=== PATIENT | female | born 1965 | race African-American/Black ===

== ENCOUNTER 2017-07-21 09:45 | Emergency (ER) | payer SELFPAY ==
[~2017-07-21] VITALS: Ht 149.9 cm; Wt 82.0 kg
[2017-07-21] MEDS ORDERED: ALBU6.7H IH (09:55)
[2017-07-21] MEDS ORDERED: MORPHINE SULFATE 4 MG/ML CPJ (NOT FOR IM USE) IV STA (10:55)
[2017-07-21] MEDS ORDERED: ONDANSETRON HCL 4MG/2ML VIAL IV STA (10:55)
[2017-07-21] MEDS ORDERED: SODIUM CHLORIDE 0.9% 1,000 ML IV ONE (10:55)
[2017-07-21] MEDS ORDERED: FAMOTIDINE 20MG/2ML VIAL IV STA (10:55)
[2017-07-21 11:07] LABS: BASOPHILS % 0.9 % (0.0-2.0); EOSINOPHILS % 0.2 % (0.0-5.0); HEMATOCRIT. 33.1 % (36.0-48.0); HEMOGLOBIN. 11.2 g/dL (12.0-16.0); LYMPHOCYTES % 18.9 % (20.0-50.0); MEAN CORPUSCULAR HEMOGLOBIN 30.9 pg (28.0-32.0); MEAN PLATELET VOLUME 8.5 fl (7.4-10.4); MONOCYTES % 4.2 % (2.0-8.0); NEUTROPHILS % 75.8 % (40.0-76.0); PLATELET 290 x1000/uL (130-400); RED BLOOD CELL COUNT 3.63 mill/uL (4.2-5.4); RED CELL DISTRIBUTION WIDTH 11.6 % (11.6-14.6)
[2017-07-21 11:15] LABS: PARTIAL THROMBOPLASTIN TIME 24.3 sec (23.4-31.0); PROTHROMBIN TIME 10.7 sec (9.4-11.6)
[2017-07-21 11:24] LABS: CARBON DIOXIDE 32 mEq/L (21-32); CHLORIDE 99 mEq/L (98-107); TROPONIN I < 0.02 ng/mL (0.00-0.04)
[2017-07-21 12:21] LABS: CLARITY URINE CLEAR (CLEAR); COLOR URINE YELLOW (YELLOW); KETONES URINE 1+ (NEGATIVE); LEUKOCYTE ESTERASE URINE NEGATIVE (NEGATIVE); NITRITE URINE NEGATIVE (NEGATIVE); OCCULT BLOOD URINE NEGATIVE (NEGATIVE); PROTEIN URINE TRACE (NEGATIVE); SPECIFIC GRAVITY URINE 1.041 (1.005-1.030)
[2017-07-21] MEDS ORDERED: KETOROLAC 30MG/ML VIAL IV ONE (14:00)
[2017-07-21 14:50] VITALS: BP 140/81
== END 2017-07-21 14:52 | disposition home or self-care (01) ==
LOC: ER 10:03
DX: R10.32 Left lower quadrant pain (principal); K59.00 Constipation, unspecified; J45.909 Unspecified asthma, uncomplicated; I10 Essential (primary) hypertension; E11.9 Type 2 diabetes mellitus without complications
CPT/HCPCS: 36415; 71045; 74176; 80053; 81001; 83690; 84484; 85025; 85610; 85730; 87086; 93005; 96361; 96374; 96375; 99285; J1885; J2270; J2405; J3490; J7030

== ENCOUNTER 2018-04-19 18:19 | Emergency (ER) | payer MEDICAID, OTHER ==
[~2018-04-19] VITALS: Ht 149.9 cm; Wt 52.0 kg
[~2018-04-19 18:19] MED LIST: ALBU6.7H IH
[2018-04-19] MEDS ORDERED: ONDANSETRON HCL 4MG/2ML INJ IV STA (20:15)
[2018-04-19] MEDS ORDERED: MORPHINE SULFATE 4 MG/ML CPJ (NOT FOR IM USE) IV STA (20:15)
[2018-04-19 21:45] LABS: BASOPHILS % 0.9 % (0.0-2.0); EOSINOPHILS % 0.1 % (0.0-5.0); HEMATOCRIT. 33.4 % (36.0-48.0); HEMOGLOBIN. 11.7 g/dL (12.0-16.0); LYMPHOCYTES % 30.1 % (20.0-50.0); MEAN CORPUSCULAR HEMOGLOBIN 32.9 pg (28.0-32.0); MEAN CORPUSCULAR VOLUME 93.4 fL (81.0-99.0); MEAN PLATELET VOLUME 9.2 fl (7.4-10.4); NEUTROPHILS % 62.9 % (40.0-76.0); PLATELET 348 x1000/uL (130-400); RED BLOOD CELL COUNT 3.57 mill/uL (4.2-5.4); RED CELL DISTRIBUTION WIDTH 12.5 % (11.6-14.6)
[2018-04-19 21:48] LABS: CHLORIDE 87 mEq/L (98-107)
[2018-04-19 21:49] LABS: PROTHROMBIN TIME 10.4 sec (9.1-11.1)
[2018-04-19 21:56] LABS: CLARITY URINE CLEAR (CLEAR); COLOR URINE YELLOW (YELLOW); KETONES URINE 4+ (NEGATIVE); LEUKOCYTE ESTERASE URINE NEGATIVE (NEGATIVE); NITRITE URINE NEGATIVE (NEGATIVE); OCCULT BLOOD URINE NEGATIVE (NEGATIVE); PROTEIN URINE 1+ (NEGATIVE); SPECIFIC GRAVITY URINE 1.024 (1.005-1.030)
[2018-04-19] MEDS ORDERED: POTASSIUM CHLORIDE 20MEQ TABLET SR PO ONE (23:15)
[2018-04-20] MEDS ORDERED: SODIUM CHLORIDE 0.9% 1,000 ML IV ONE (00:34)
[2018-04-20 03:06] VITALS: BP 100/58
== END 2018-04-20 03:06 | disposition home or self-care (01) ==
LOC: ER 18:19
DX: K31.84 Gastroparesis (principal); G89.29 Other chronic pain; R10.84 Generalized abdominal pain; R11.2 Nausea with vomiting, unspecified; E11.9 Type 2 diabetes mellitus without complications; I10 Essential (primary) hypertension; Z98.890 Other specified postprocedural states; Z79.899 Other long term (current) drug therapy
CPT/HCPCS: 36415; 80053; 81003; 81025; 83690; 85025; 85610; 96361; 96374; 96375; 99285; J2270; J2405; J7030

== ENCOUNTER 2018-05-08 07:48 | Emergency (ER) | payer MEDICAID ==
[~2018-05-08] VITALS: Ht 149.9 cm; Wt 54.0 kg
[2018-05-08] MEDS ORDERED: MORPHINE SULFATE 4 MG/ML CPJ (NOT FOR IM USE) IV STA (10:12)
[2018-05-08] MEDS ORDERED: FAMOTIDINE 20MG/2ML VIAL IV STA (10:12)
[2018-05-08] MEDS ORDERED: SODIUM CHLORIDE 0.9% 1,000 ML IV ONE (10:12)
[2018-05-08] MEDS ORDERED: ONDANSETRON HCL 4MG/2ML INJ IV STA (10:12)
[2018-05-08 12:16] LABS: CLARITY URINE CLEAR (CLEAR); COLOR URINE YELLOW (YELLOW); KETONES URINE 3+ (NEGATIVE); LEUKOCYTE ESTERASE URINE NEGATIVE (NEGATIVE); NITRITE URINE NEGATIVE (NEGATIVE); OCCULT BLOOD URINE NEGATIVE (NEGATIVE); PROTEIN URINE 2+ (NEGATIVE); SPECIFIC GRAVITY URINE 1.021 (1.005-1.030)
[2018-05-08 12:34] LABS: BASOPHILS % 1.3 % (0.0-2.0); EOSINOPHILS % 0.4 % (0.0-5.0); HEMATOCRIT. 24.9 % (36.0-48.0); HEMOGLOBIN. 8.5 g/dL (12.0-16.0); LYMPHOCYTES % 28.5 % (20.0-50.0); MEAN CORPUSCULAR HEMOGLOBIN 33.5 pg (28.0-32.0); MEAN CORPUSCULAR VOLUME 97.6 fL (81.0-99.0); MONOCYTES % 5.5 % (2.0-8.0); NEUTROPHILS % 64.3 % (40.0-76.0); PLATELET 227 x1000/uL (130-400); RED BLOOD CELL COUNT 2.55 mill/uL (4.2-5.4); RED CELL DISTRIBUTION WIDTH 13.1 % (11.6-14.6)
[2018-05-08 12:38] LABS: CHLORIDE 106 mEq/L (98-107)
[2018-05-08 12:44] LABS: HCG SCREEN NEGATIVE
[2018-05-08 12:49] LABS: INR 1.1
[2018-05-08] MEDS ORDERED: KETOROLAC 30MG/ML VIAL IV ONE (13:30)
[2018-05-08 13:53] VITALS: BP 136/60
[2018-05-12] MEDS ORDERED: METOCLOPRAMIDE HCL 10MG/2ML VIAL IV NR (05:30)
== END 2018-05-08 13:54 | disposition home or self-care (01) ==
LOC: ER 12:43
DX: K31.84 Gastroparesis (principal); E11.9 Type 2 diabetes mellitus without complications; I10 Essential (primary) hypertension; Z98.890 Other specified postprocedural states; Z88.9 Allergy status to unspecified drugs, medicaments and biological substances
CPT/HCPCS: 36415; 74176; 80053; 81003; 81025; 83690; 84703; 85025; 85610; 96361; 96374; 96375; 99285; J1885; J2270; J2405; J3490; J7030

== ENCOUNTER 2018-05-12 05:00 | Inpatient (IN) | payer MEDICAID ==
[~2018-05-12] VITALS: Ht 121.9 cm; Wt 54.4 kg
[2018-05-12] MEDS ORDERED: KETOROLAC 30MG/ML VIAL IV STA (05:24)
[2018-05-12] MEDS ORDERED: ONDANSETRON HCL 4MG/2ML INJ IV STA (05:24)
[2018-05-12 06:07] LABS: BASOPHILS % 1.2 % (0.0-2.0); EOSINOPHILS % 0.2 % (0.0-5.0); HEMATOCRIT. 31.3 % (36.0-48.0); HEMOGLOBIN. 10.8 g/dL (12.0-16.0); LYMPHOCYTES % 24.6 % (20.0-50.0); MEAN CORPUSCULAR HEMOGLOBIN 33.8 pg (28.0-32.0); MEAN PLATELET VOLUME 8.7 fl (7.4-10.4); MONOCYTES % 4.2 % (2.0-8.0); NEUTROPHILS % 69.8 % (40.0-76.0); PLATELET 438 x1000/uL (130-400); RED CELL DISTRIBUTION WIDTH 13.1 % (11.6-14.6)
[2018-05-12 06:08] LABS: CHLORIDE 101 mEq/L (98-107)
[2018-05-12 06:10] LABS: PARTIAL THROMBOPLASTIN TIME 27.5 sec (23.4-31.0); PROTHROMBIN TIME 10.4 sec (9.1-11.1)
[2018-05-12 07:14] LABS: CLARITY URINE CLEAR (CLEAR); COLOR URINE YELLOW (YELLOW); KETONES URINE 4+ (NEGATIVE); LEUKOCYTE ESTERASE URINE NEGATIVE (NEGATIVE); NITRITE URINE NEGATIVE (NEGATIVE); OCCULT BLOOD URINE NEGATIVE (NEGATIVE); PROTEIN URINE 1+ (NEGATIVE); SPECIFIC GRAVITY URINE 1.023 (1.005-1.030)
[2018-05-12] MEDS ORDERED: PANTOPRAZOLE 80 MG in SODIUM CHLORIDE 0.9% 100 ML IV SCH (08:00)
[2018-05-12] MEDS ORDERED: PANTOPRAZOLE SODIUM 40 MG/VIAL IV ONE (08:00)
[2018-05-12] MEDS ORDERED: ONDANSETRON HCL 4MG/2ML INJ IV ONE (08:00)
[2018-05-12] MEDS ORDERED: DICYCLOMINE HCL 10MG/ML 2ML AMP IM ONE (08:00)
[2018-05-12] MEDS ORDERED: POTASSIUM CHLORIDE INJ 40 MEQ in DEXT 5% WATER 250 ML IV ONE (08:30)
[2018-05-12] MEDS ORDERED: PANTOPRAZOLE 80 MG in SODIUM CHLORIDE 0.9% 100 ML IV ONE (08:30)
[2018-05-12] MEDS ORDERED: IOHEXOL-300 100 ML BOTTLE ONE (10:44)
[2018-05-12 14:30] VITALS: BP 174/64
[2018-05-12] MEDS: MORPHINE SULFATE 4 MG/ML CPJ (NOT FOR IM USE) IV PRN ×2 (14:50→20:14)
[2018-05-12] MEDS ORDERED: LORAZEPAM 2MG/ML CPJ IV PRN (15:00)
[2018-05-12 16:00] VITALS: BP_SYST 174; BP_SYST 176; BP_DIAS 64; BP_DIAS 83
[2018-05-12] MEDS: PANTOPRAZOLE 40MG DR TABLET PO SCH (17:53)
[2018-05-12 20:00] VITALS: BP 195/95
[2018-05-13] VITALS (7 sets, daily range): BP systolic 121–171; BP diastolic 64–99
[2018-05-13] MEDS: INSULIN LISPRO 100 UNITS/ML SUBCUT SCH ×4 (07:50→21:00)
[2018-05-13] MEDS ORDERED: DIPHENHYDRAMINE 50MG/ML VIAL IV PRN (08:00)
[2018-05-13] MEDS ORDERED: DEXTROSE 50% WATER 50ML SYRINGE IV PRN (08:00)
[2018-05-13] MEDS ORDERED: CLONIDINE 0.1MG TABLET PO PRN (08:00)
[2018-05-13] MEDS: BLOOD SUGAR DIAGNOSTIC STRIP TEST SCH ×4 (08:03→21:19)
[2018-05-13 08:04] LABS: BASOPHILS % 0.8 % (0.0-2.0); EOSINOPHILS % 0.4 % (0.0-5.0); HEMATOCRIT. 30.5 % (36.0-48.0); HEMOGLOBIN. 10.5 g/dL (12.0-16.0); LYMPHOCYTES % 35.1 % (20.0-50.0); MEAN CORPUSCULAR HEMOGLOBIN 33.5 pg (28.0-32.0); MEAN CORPUSCULAR VOLUME 97.1 fL (81.0-99.0); MEAN PLATELET VOLUME 8.7 fl (7.4-10.4); MONOCYTES % 9.3 % (2.0-8.0); NEUTROPHILS % 54.4 % (40.0-76.0); PLATELET 427 x1000/uL (130-400); RED BLOOD CELL COUNT 3.14 mill/uL (4.2-5.4); RED CELL DISTRIBUTION WIDTH 12.9 % (11.6-14.6)
[2018-05-13 08:11] LABS: CHLORIDE 102 mEq/L (98-107)
[2018-05-13] MEDS: PANTOPRAZOLE 40MG DR TABLET PO SCH (08:30)
[2018-05-13] MEDS: METOCLOPRAMIDE HCL 10MG TABLET PO SCH ×3 (08:31→20:40)
[2018-05-13] MEDS: MORPHINE SULFATE 4 MG/ML CPJ (NOT FOR IM USE) IV PRN ×3 (08:31→20:41)
[2018-05-13] MEDS ORDERED: POTASSIUM CHLORIDE 20MEQ TABLET SR PO NR (09:45)
[2018-05-13 20:00] LABS: HEMATOCRIT 33.9 % (36.0-48.0); HEMOGLOBIN 11.5 g/dL (12.0-16.0)
[2018-05-13] MEDS: PANTOPRAZOLE SODIUM 40 MG/VIAL IV SCH (20:40)
[2018-05-14] VITALS: BP 154/83
[2018-05-14 01:00] LABS: HEMATOCRIT 31.7 % (36.0-48.0); HEMOGLOBIN 11.3 g/dL (12.0-16.0)
[2018-05-14] MEDS: MORPHINE SULFATE 4 MG/ML CPJ (NOT FOR IM USE) IV PRN ×5 (01:07→21:45)
[2018-05-14 04:00] VITALS: BP 138/74
[2018-05-14] MEDS: METOCLOPRAMIDE HCL 10MG TABLET PO SCH (06:28)
[2018-05-14] MEDS: BLOOD SUGAR DIAGNOSTIC STRIP TEST SCH ×4 (06:29→21:05)
[2018-05-14] MEDS: ONDANSETRON HCL 4MG/2ML INJ IV PRN ×2 (06:29→17:29)
[2018-05-14] MEDS: INSULIN LISPRO 100 UNITS/ML SUBCUT SCH ×4 (06:29→21:00)
[2018-05-14 07:04] LABS: BASOPHILS % 0.8 % (0.0-2.0); EOSINOPHILS % 0.4 % (0.0-5.0); HEMATOCRIT. 30.2 % (36.0-48.0); HEMOGLOBIN. 10.5 g/dL (12.0-16.0); LYMPHOCYTES % 41.6 % (20.0-50.0); MEAN CORPUSCULAR HEMOGLOBIN 33.9 pg (28.0-32.0); MEAN CORPUSCULAR VOLUME 97.1 fL (81.0-99.0); MEAN PLATELET VOLUME 8.6 fl (7.4-10.4); MONOCYTES % 7.5 % (2.0-8.0); NEUTROPHILS % 49.7 % (40.0-76.0); PLATELET 468 x1000/uL (130-400); RED BLOOD CELL COUNT 3.11 mill/uL (4.2-5.4); RED CELL DISTRIBUTION WIDTH 12.9 % (11.6-14.6)
[2018-05-14 07:18] LABS: CHLORIDE 101 mEq/L (98-107)
[2018-05-14 08:00] VITALS: BP 162/82
[2018-05-14] MEDS: PANTOPRAZOLE SODIUM 40 MG/VIAL IV SCH ×2 (09:43→21:16)
[2018-05-14] MEDS ORDERED: POTASSIUM CHLORIDE 20MEQ TABLET SR PO SCH ×2 (10:45→14:45)
[2018-05-14 12:00] VITALS: BP 153/80
[2018-05-14] MEDS: METOCLOPRAMIDE HCL 10MG/2ML VIAL IV SCH ×2 (12:26→18:13)
[2018-05-14] MEDS: ACETAMINOPHEN 325MG TABLET PO PRN (14:14)
[2018-05-14 16:00] VITALS: BP 124/79
[2018-05-14 20:00] VITALS: BP 141/73
[2018-05-15] VITALS: BP 136/76
[2018-05-15] MEDS: ACETAMINOPHEN 325MG TABLET PO PRN ×2 (00:37→05:48)
[2018-05-15] MEDS: METOCLOPRAMIDE HCL 10MG/2ML VIAL IV SCH ×3 (01:33→12:00)
[2018-05-15 04:00] VITALS: BP 138/76
[2018-05-15] MEDS: BLOOD SUGAR DIAGNOSTIC STRIP TEST SCH ×2 (05:17→11:48)
[2018-05-15] MEDS: INSULIN LISPRO 100 UNITS/ML SUBCUT SCH ×2 (07:50→11:48)
[2018-05-15 08:00] VITALS: BP 132/79
[2018-05-15] MEDS: PANTOPRAZOLE SODIUM 40 MG/VIAL IV SCH (10:52)
[2018-05-15] MEDS: MORPHINE SULFATE 4 MG/ML CPJ (NOT FOR IM USE) IV PRN (10:53)
[2018-05-15 12:00] VITALS: BP 159/84
[2018-05-15] MEDS ORDERED: BISACODYL 10MG SUPP PR PRN (12:00)
[2018-05-15] MEDS ORDERED: DOCUSATE SODIUM 250MG CAPSULE PO PRN (12:00)
[2018-05-15] MEDS ORDERED: BISACODYL 5MG TABLET PO PRN (12:00)
[2018-05-15 12:11] LABS: BASOPHILS % 0.9 % (0.0-2.0); EOSINOPHILS % 0.5 % (0.0-5.0); HEMATOCRIT. 33.5 % (36.0-48.0); HEMOGLOBIN. 11.5 g/dL (12.0-16.0); LYMPHOCYTES % 32.6 % (20.0-50.0); MEAN CORPUSCULAR HEMOGLOBIN 33.5 pg (28.0-32.0); MEAN CORPUSCULAR VOLUME 97.5 fL (81.0-99.0); MEAN PLATELET VOLUME 8.2 fl (7.4-10.4); MONOCYTES % 6.2 % (2.0-8.0); NEUTROPHILS % 59.8 % (40.0-76.0); PLATELET 537 x1000/uL (130-400); RED BLOOD CELL COUNT 3.43 mill/uL (4.2-5.4); RED CELL DISTRIBUTION WIDTH 12.7 % (11.6-14.6)
[2018-05-15] MEDS: ONDANSETRON HCL 4MG/2ML INJ IV PRN (12:42)
[2018-05-15 12:44] LABS: CHLORIDE 101 mEq/L (98-107)
[2018-05-15 14:56] VITALS: BP 159/84
[2018-05-20 14:41] LABS: FOLIC ACID (FOLATE) SERUM 16.4 ng/mL (>5.38)
== END 2018-05-15 15:30 | disposition home or self-care (01) | DRG 48 ==
LOC: ER 05:00 → 6EST 10:13 → EDBEDREQTM 10:16 → EDBEDREQ 10:16 → EDBEDREQSVC 10:16 → ENRESERV 12:18 → 6EST 05-14 10:30
PROVIDERS: ADMIT Internal Medicine; ATTEND Internal Medicine
DX: E11.43 Type 2 diabetes mellitus with diabetic autonomic (poly)neuropathy (principal); K22.6 Gastro-esophageal laceration-hemorrhage syndrome; K29.71 Gastritis, unspecified, with bleeding; K31.84 Gastroparesis; D25.9 Leiomyoma of uterus, unspecified; E87.6 Hypokalemia; D64.9 Anemia, unspecified; E78.00 Pure hypercholesterolemia, unspecified; E78.5 Hyperlipidemia, unspecified; I10 Essential (primary) hypertension; G40.909 Epilepsy, unspecified, not intractable, without status epilepticus; K21.9 Gastro-esophageal reflux disease without esophagitis; K80.20 Calculus of gallbladder without cholecystitis without obstruction; N20.0 Calculus of kidney; Z88.8 Allergy status to other drugs, medicaments and biological substances; Z79.899 Other long term (current) drug therapy
CPT/HCPCS: 36415; 74177; 74181; 76705; 78227; 80048; 80076; 81025; 82607; 82728; 82746; 82962; 83540; 83550; 85014; 85018; 86850; 86900; 93005; 96365; 96366; 96368; 96372; 96375; 96376; 99291; A9537; C1893; C9113; J0500; J1885; J2060; J2270; J2405; J2765; J3480; J7030; J7050; J7060; J8597; Q9967

== ENCOUNTER 2018-07-23 10:30 | Inpatient (IN) | payer MEDICAID ==
[~2018-07-23] VITALS: Ht 160 cm; Wt 50.3 kg
[2018-07-23] MEDS ORDERED: SODIUM CHLORIDE 0.9% 1,000 ML IV ONE (12:28)
[2018-07-23] MEDS ORDERED: ONDANSETRON HCL 4MG/2ML INJ IV STA (12:28)
[2018-07-23] MEDS ORDERED: FAMOTIDINE 20MG/2ML VIAL IV STA (12:28)
[2018-07-23] MEDS ORDERED: MORPHINE SULFATE 4 MG/ML CPJ (NOT FOR IM USE) IV STA (12:28)
[2018-07-23] MEDS ORDERED: MORPHINE SULFATE 4 MG/ML CPJ (NOT FOR IM USE) IV ONE ×2 (13:45→15:45)
[2018-07-23 13:59] LABS: BASOPHILS % 1.4 % (0.0-2.0); EOSINOPHILS % 0.2 % (0.0-5.0); HEMATOCRIT. 38.8 % (36.0-48.0); HEMOGLOBIN. 13.1 g/dL (12.0-16.0); LYMPHOCYTES % 50.2 % (20.0-50.0); MEAN CORPUSCULAR HEMOGLOBIN 31.7 pg (28.0-32.0); MEAN CORPUSCULAR VOLUME 94.4 fL (81.0-99.0); MEAN PLATELET VOLUME 9.1 fl (7.4-10.4); MONOCYTES % 5.2 % (2.0-8.0); PLATELET 151 x1000/uL (130-400); RED BLOOD CELL COUNT 4.12 mill/uL (4.2-5.4); RED CELL DISTRIBUTION WIDTH 12.3 % (11.6-14.6)
[2018-07-23 14:05] LABS: CHLORIDE 103 mEq/L (98-107)
[2018-07-23 14:09] LABS: INR 1.1; PROTHROMBIN TIME 10.6 sec (9.1-11.1)
[2018-07-23 14:32] LABS: CLARITY URINE CLEAR (CLEAR); COLOR URINE DARK YELLOW (YELLOW); KETONES URINE 1+ (NEGATIVE); LEUKOCYTE ESTERASE URINE NEGATIVE (NEGATIVE); NITRITE URINE NEGATIVE (NEGATIVE); OCCULT BLOOD URINE NEGATIVE (NEGATIVE); PROTEIN URINE 1+ (NEGATIVE); SPECIFIC GRAVITY URINE 1.038 (1.005-1.030)
[2018-07-23] MEDS ORDERED: ENOXAPARIN 40MG/0.4ML SYR SUBCUT SCH (18:00)
[2018-07-23] MEDS ORDERED: MAGNESIUM/ALUMINUM HYDROXIDE/SIMETHICONE 30ML UDC PO PRN (18:00)
[2018-07-23] MEDS ORDERED: GUAIFENESIN 200MG/10ML SUGAR FREE UDC PO PRN (18:00)
[2018-07-23] MEDS ORDERED: ONDANSETRON HCL 4MG/2ML INJ ONE (18:01)
[2018-07-23] MEDS: ONDANSETRON HCL 4MG/2ML INJ IV PRN (18:09)
[2018-07-23 18:24] VITALS: BP 159/86
[2018-07-23] MEDS: SODIUM CHLORIDE 0.9% 1,000 ML IV SCH (18:32)
[2018-07-23 18:52] VITALS: BP 159/86
[2018-07-23 18:53] VITALS: BP 159/86
[2018-07-23] MEDS ORDERED: DEXTROSE 50% WATER 50ML SYRINGE IV PRN (19:15)
[2018-07-23 20:00] VITALS: BP 131/71
[2018-07-23 20:24] LABS: CHLORIDE 107 mEq/L (98-107)
[2018-07-23] MEDS ORDERED: PANTOPRAZOLE SODIUM 40 MG/VIAL IV NR (20:30)
[2018-07-23] MEDS: ENOXAPARIN 40MG/0.4ML SYR SUBCUT SCH (20:37)
[2018-07-23] MEDS: HYDROCODONE/ACETAMINOPHEN 5/325MG TABLET PO PRN (20:41)
[2018-07-23] MEDS: BLOOD SUGAR DIAGNOSTIC STRIP TEST SCH (20:49)
[2018-07-23] MEDS ORDERED: KEPP500 PO (21:54)
[2018-07-23] MEDS ORDERED: PROT20 PO (21:54)
[2018-07-23] MEDS ORDERED: ALPR0.25 PO (21:54)
[2018-07-23] MEDS ORDERED: CARV3.1242 PO (21:54)
[2018-07-23] MEDS ORDERED: ONDA4TAB5 PO (21:54)
[2018-07-23] MEDS: LEVETIRACETAM 500MG TABLET PO SCH (22:15)
[2018-07-23] MEDS: LORAZEPAM 2MG/ML CPJ IV PRN (22:22)
[2018-07-23] MEDS: METOCLOPRAMIDE HCL 10MG/2ML VIAL IV PRN (22:22)
[2018-07-24] VITALS: BP_SYST 131; BP_SYST 95; BP_DIAS 50; BP_DIAS 71
[2018-07-24 00:32] LABS: *AMPHETAMINES SCREEN URINE NEGATIVE (NEGATIVE); *BARBITURATES SCREEN URINE NEGATIVE (NEGATIVE); *BENZODIAZEPINES SCREEN URINE NEGATIVE (NEGATIVE); *COCAINE SCREEN URINE NEGATIVE (NEGATIVE); METHADONE URINE SCREEN NEGATIVE (NEGATIVE); OPIATES URINE SCREEN PRESUMTIVE POSITIVE (NEGATIVE)
[2018-07-24 00:33] LABS: CANNABINOID URINE SCREEN PRESUMTIVE POSITIVE (NEGATIVE); PHENCYCLIDINE URINE SCREEN NEGATIVE (NEGATIVE)
[2018-07-24 00:51] LABS: CREATINE KINASE 67 IU/L (26-192)
[2018-07-24 00:52] LABS: CREATINE KINASE MB FRACTION 1.2 ng/mL (0.5-3.6)
[2018-07-24 04:00] VITALS: BP 132/71
[2018-07-24] MEDS: BLOOD SUGAR DIAGNOSTIC STRIP TEST SCH ×4 (05:07→20:33)
[2018-07-24 06:54] LABS: BASOPHILS % 1.5 % (0.0-2.0); EOSINOPHILS % 0.2 % (0.0-5.0); HEMATOCRIT. 30.1 % (36.0-48.0); HEMOGLOBIN. 10.1 g/dL (12.0-16.0); LYMPHOCYTES % 48.3 % (20.0-50.0); MEAN CORPUSCULAR HEMOGLOBIN 31.7 pg (28.0-32.0); MEAN CORPUSCULAR VOLUME 94.3 fL (81.0-99.0); MEAN PLATELET VOLUME 10.2 fl (7.4-10.4); MONOCYTES % 6.4 % (2.0-8.0); NEUTROPHILS % 43.6 % (40.0-76.0); PLATELET 148 x1000/uL (130-400); RED BLOOD CELL COUNT 3.19 mill/uL (4.2-5.4)
[2018-07-24 07:04] LABS: LDL CHOLESTEROL 130 mg/dL (5-100)
[2018-07-24 07:06] LABS: CREATINE KINASE 64 IU/L (26-192); HDL CHOLESTEROL 50 mg/dL (40-59)
[2018-07-24 07:08] LABS: CREATINE KINASE MB FRACTION 1.1 ng/mL (0.5-3.6)
[2018-07-24 08:00] VITALS: BP 118/62
[2018-07-24] MEDS: LORAZEPAM 2MG/ML CPJ IV PRN ×2 (09:34→15:02)
[2018-07-24] MEDS: LEVETIRACETAM 500MG TABLET PO SCH (09:35)
[2018-07-24] MEDS: HYDROCODONE/ACETAMINOPHEN 5/325MG TABLET PO PRN (09:36)
[2018-07-24] MEDS: PANTOPRAZOLE SODIUM 40 MG/VIAL IV SCH (09:36)
[2018-07-24] MEDS: SODIUM CHLORIDE 0.9% 1,000 ML IV SCH (09:42)
[2018-07-24] MEDS: METOCLOPRAMIDE HCL 10MG/2ML VIAL IV PRN (10:05)
[2018-07-24 12:00] VITALS: BP 176/60
[2018-07-24] MEDS: HYDROMORPHONE HCL/PF 2MG/ML CPJ IV PRN ×2 (12:08→18:22)
[2018-07-24] MEDS: CARVEDILOL 3.125 MG TABLET PO SCH (13:30)
[2018-07-24] MEDS ORDERED: ALPRAZOLAM 0.25 MG TABLET PO PRN (13:30)
[2018-07-24] MEDS: CLONIDINE 0.1MG TABLET PO PRN (15:45)
[2018-07-24 16:00] VITALS: BP 165/70
[2018-07-24] MEDS: INSULIN LISPRO 100 UNITS/ML SUBCUT SCH (20:35)
[2018-07-24] MEDS: ENOXAPARIN 40MG/0.4ML SYR SUBCUT SCH (20:54)
[2018-07-25] VITALS: BP 133/68
[2018-07-25] MEDS: SODIUM CHLORIDE 0.9% 1,000 ML IV SCH ×2 (03:24→22:39)
[2018-07-25 04:00] VITALS: BP 124/64
[2018-07-25] MEDS: BLOOD SUGAR DIAGNOSTIC STRIP TEST SCH ×4 (06:45→21:00)
[2018-07-25 07:09] LABS: BASOPHILS % 1.1 % (0.0-2.0); HEMATOCRIT. 30.4 % (36.0-48.0); HEMOGLOBIN. 10.2 g/dL (12.0-16.0); LYMPHOCYTES % 50.3 % (20.0-50.0); MEAN CORPUSCULAR HEMOGLOBIN 31.6 pg (28.0-32.0); MEAN CORPUSCULAR VOLUME 94.1 fL (81.0-99.0); MEAN PLATELET VOLUME 11.5 fl (7.4-10.4); MONOCYTES % 6.2 % (2.0-8.0); NEUTROPHILS % 42.4 % (40.0-76.0); PLATELET 112 x1000/uL (130-400); RED BLOOD CELL COUNT 3.23 mill/uL (4.2-5.4); RED CELL DISTRIBUTION WIDTH 12.1 % (11.6-14.6)
[2018-07-25 07:40] LABS: CHLORIDE 106 mEq/L (98-107)
[2018-07-25 08:00] VITALS: BP 134/74
[2018-07-25] MEDS: INSULIN LISPRO 100 UNITS/ML SUBCUT SCH ×4 (08:10→21:00)
[2018-07-25] MEDS: LEVETIRACETAM 500MG TABLET PO SCH (09:33)
[2018-07-25] MEDS: DOCUSATE SODIUM 100MG CAPSULE PO PRN (09:33)
[2018-07-25] MEDS: PANTOPRAZOLE SODIUM 40 MG/VIAL IV SCH (09:33)
[2018-07-25] MEDS: CARVEDILOL 3.125 MG TABLET PO SCH (09:34)
[2018-07-25] MEDS: HYDROMORPHONE HCL/PF 2MG/ML CPJ IV PRN ×2 (11:55→22:37)
[2018-07-25] MEDS: ONDANSETRON HCL 4MG/2ML INJ IV PRN (14:51)
[2018-07-25 16:00] VITALS: BP 152/79
[2018-07-25 20:00] VITALS: BP 111/69
[2018-07-25] MEDS: SUCRALFATE 1G TABLET PO SCH (22:28)
[2018-07-25] MEDS: ENOXAPARIN 40MG/0.4ML SYR SUBCUT SCH (22:40)
[2018-07-26] VITALS: BP 115/72
[2018-07-26] MEDS: LORAZEPAM 2MG/ML CPJ IV PRN ×2 (03:20→09:38)
[2018-07-26 04:00] VITALS: BP 123/83
[2018-07-26] MEDS: BLOOD SUGAR DIAGNOSTIC STRIP TEST SCH ×4 (05:37→21:47)
[2018-07-26 07:35] LABS: EOSINOPHILS % 0.5 % (0.0-5.0); HEMATOCRIT. 30.7 % (36.0-48.0); HEMOGLOBIN. 10.4 g/dL (12.0-16.0); LYMPHOCYTES % 61.4 % (20.0-50.0); MEAN CORPUSCULAR HEMOGLOBIN 31.9 pg (28.0-32.0); MEAN CORPUSCULAR VOLUME 93.6 fL (81.0-99.0); MEAN PLATELET VOLUME 9.1 fl (7.4-10.4); MONOCYTES % 5.8 % (2.0-8.0); NEUTROPHILS % 31.3 % (40.0-76.0); PLATELET 144 x1000/uL (130-400); RED BLOOD CELL COUNT 3.27 mill/uL (4.2-5.4)
[2018-07-26 07:40] LABS: CHLORIDE 107 mEq/L (98-107)
[2018-07-26 08:00] VITALS: BP 153/77
[2018-07-26] MEDS: INSULIN LISPRO 100 UNITS/ML SUBCUT SCH ×4 (08:10→21:00)
[2018-07-26] MEDS ORDERED: FAMOTIDINE 20MG TABLET PO SCH (09:00)
[2018-07-26] MEDS: LEVETIRACETAM 500MG TABLET PO SCH (09:24)
[2018-07-26] MEDS: SUCRALFATE 1G TABLET PO SCH ×4 (09:24→21:38)
[2018-07-26] MEDS: PANTOPRAZOLE SODIUM 40 MG/VIAL IV SCH (09:24)
[2018-07-26] MEDS: CARVEDILOL 3.125 MG TABLET PO SCH (09:25)
[2018-07-26] MEDS: HYDROMORPHONE HCL/PF 2MG/ML CPJ IV PRN (09:32)
[2018-07-26] MEDS: CLONIDINE 0.1MG TABLET PO PRN (11:56)
[2018-07-26] MEDS: METOCLOPRAMIDE HCL 10MG/2ML VIAL IV SCH ×2 (11:57→18:47)
[2018-07-26] MEDS: SODIUM CHLORIDE 0.9% 1,000 ML IV SCH (11:57)
[2018-07-26 12:00] VITALS: BP_SYST 148; BP_SYST 198; BP_DIAS 109; BP_DIAS 78
[2018-07-26 16:00] VITALS: BP 115/72
[2018-07-26 20:00] VITALS: BP 144/83
[2018-07-26] MEDS: ENOXAPARIN 40MG/0.4ML SYR SUBCUT SCH (21:39)
[2018-07-27] VITALS: BP 123/83
[2018-07-27] MEDS: METOCLOPRAMIDE HCL 10MG/2ML VIAL IV SCH ×5 (00:45→23:05)
[2018-07-27 04:00] VITALS: BP 120/80
[2018-07-27] MEDS: SODIUM CHLORIDE 0.9% 1,000 ML IV SCH ×2 (05:07→20:57)
[2018-07-27] MEDS: INSULIN LISPRO 100 UNITS/ML SUBCUT SCH ×4 (05:58→20:50)
[2018-07-27] MEDS: BLOOD SUGAR DIAGNOSTIC STRIP TEST SCH ×4 (05:58→20:51)
[2018-07-27 07:05] LABS: BASOPHILS % 1.4 % (0.0-2.0); HEMOGLOBIN. 11.6 g/dL (12.0-16.0); LYMPHOCYTES % 58.3 % (20.0-50.0); MEAN CORPUSCULAR HEMOGLOBIN 31.7 pg (28.0-32.0); MEAN CORPUSCULAR VOLUME 93.3 fL (81.0-99.0); MEAN PLATELET VOLUME 9.5 fl (7.4-10.4); MONOCYTES % 6.4 % (2.0-8.0); NEUTROPHILS % 31.9 % (40.0-76.0); PLATELET 155 x1000/uL (130-400); RED BLOOD CELL COUNT 3.65 mill/uL (4.2-5.4); RED CELL DISTRIBUTION WIDTH 12.1 % (11.6-14.6)
[2018-07-27 07:10] LABS: CHLORIDE 106 mEq/L (98-107)
[2018-07-27] MEDS: SUCRALFATE 1G TABLET PO SCH ×4 (07:40→20:57)
[2018-07-27 08:00] VITALS: BP 150/87
[2018-07-27] MEDS: PANTOPRAZOLE SODIUM 40 MG/VIAL IV SCH (10:41)
[2018-07-27] MEDS: LEVETIRACETAM 500MG TABLET PO SCH (10:42)
[2018-07-27] MEDS: CARVEDILOL 3.125 MG TABLET PO SCH (10:42)
[2018-07-27 12:00] VITALS: BP 132/78
[2018-07-27] MEDS: HYDROMORPHONE HCL/PF 2MG/ML CPJ IV PRN (12:48)
[2018-07-27 16:00] VITALS: BP 146/80
[2018-07-27 20:00] VITALS: BP 144/73
[2018-07-27] MEDS: ENOXAPARIN 40MG/0.4ML SYR SUBCUT SCH (20:57)
[2018-07-28] VITALS: BP 123/75
[2018-07-28 04:00] VITALS: BP 135/74
[2018-07-28] MEDS: METOCLOPRAMIDE HCL 10MG/2ML VIAL IV SCH ×3 (06:00→17:22)
[2018-07-28] MEDS: HYDROMORPHONE HCL/PF 2MG/ML CPJ IV PRN (06:58)
[2018-07-28] MEDS: BLOOD SUGAR DIAGNOSTIC STRIP TEST SCH ×4 (07:01→20:59)
[2018-07-28 07:21] LABS: BASOPHILS % 0.9 % (0.0-2.0); EOSINOPHILS % 2.1 % (0.0-5.0); HEMATOCRIT. 31.6 % (36.0-48.0); HEMOGLOBIN. 10.9 g/dL (12.0-16.0); LYMPHOCYTES % 40.3 % (20.0-50.0); MEAN CORPUSCULAR HEMOGLOBIN 31.7 pg (28.0-32.0); MEAN PLATELET VOLUME 9.7 fl (7.4-10.4); MONOCYTES % 6.2 % (2.0-8.0); NEUTROPHILS % 50.5 % (40.0-76.0); PLATELET 139 x1000/uL (130-400); RED BLOOD CELL COUNT 3.43 mill/uL (4.2-5.4); RED CELL DISTRIBUTION WIDTH 11.9 % (11.6-14.6)
[2018-07-28 07:42] LABS: CHLORIDE 106 mEq/L (98-107)
[2018-07-28 08:00] VITALS: BP 157/85
[2018-07-28] MEDS: INSULIN LISPRO 100 UNITS/ML SUBCUT SCH ×4 (08:00→21:00)
[2018-07-28] MEDS: SUCRALFATE 1G TABLET PO SCH ×4 (08:27→21:09)
[2018-07-28] MEDS: ONDANSETRON HCL 4MG/2ML INJ IV PRN (08:27)
[2018-07-28] MEDS: PANTOPRAZOLE SODIUM 40 MG/VIAL IV SCH (08:27)
[2018-07-28] MEDS: LEVETIRACETAM 500MG TABLET PO SCH (08:28)
[2018-07-28] MEDS: CARVEDILOL 3.125 MG TABLET PO SCH (08:28)
[2018-07-28] MEDS: DOCUSATE SODIUM 100MG CAPSULE PO PRN (08:28)
[2018-07-28 12:00] VITALS: BP 168/92
[2018-07-28] MEDS: SODIUM CHLORIDE 0.9% 1,000 ML IV SCH (13:43)
[2018-07-28] MEDS ORDERED: LACTULOSE 20G/30ML UDC PO NR (14:45)
[2018-07-28 16:00] VITALS: BP 150/77
[2018-07-28 20:00] VITALS: BP 157/97
[2018-07-28] MEDS: ACETAMINOPHEN 325MG TABLET PO PRN (21:09)
[2018-07-28] MEDS: ENOXAPARIN 40MG/0.4ML SYR SUBCUT SCH (21:09)
[2018-07-28] MEDS: CLONIDINE 0.1MG TABLET PO PRN (21:09)
[2018-07-29] VITALS: BP 110/64
[2018-07-29 04:00] VITALS: BP 128/69
[2018-07-29] MEDS: BLOOD SUGAR DIAGNOSTIC STRIP TEST SCH ×3 (05:06→17:33)
[2018-07-29] MEDS: METOCLOPRAMIDE HCL 10MG/2ML VIAL IV SCH ×4 (05:24→17:33)
[2018-07-29] MEDS: SODIUM CHLORIDE 0.9% 1,000 ML IV SCH (05:24)
[2018-07-29 08:00] VITALS: BP 134/85
[2018-07-29] MEDS: INSULIN LISPRO 100 UNITS/ML SUBCUT SCH ×3 (08:10→18:00)
[2018-07-29] MEDS: CARVEDILOL 3.125 MG TABLET PO SCH (08:57)
[2018-07-29] MEDS: LEVETIRACETAM 500MG TABLET PO SCH (08:57)
[2018-07-29] MEDS: SUCRALFATE 1G TABLET PO SCH ×3 (08:58→17:33)
[2018-07-29] MEDS: PANTOPRAZOLE SODIUM 40 MG/VIAL IV SCH (08:58)
[2018-07-29] MEDS: HYDROMORPHONE HCL/PF 2MG/ML CPJ IV PRN (09:07)
[2018-07-29 12:00] VITALS: BP 118/64
[2018-07-29 16:00] VITALS: BP 135/70
[2018-07-29] MEDS: ACETAMINOPHEN 325MG TABLET PO PRN (17:07)
[2018-07-29] MEDS ORDERED: PANT40TA4 MT (17:39)
[2018-07-29] MEDS ORDERED: METO-293 MT (17:39)
[2018-07-29 18:09] VITALS: BP 135/70
== END 2018-07-29 19:05 | disposition home or self-care (01) | DRG 48 ==
LOC: ER 11:12 → 7WST 16:29 → EDBEDREQ 16:38 → ENRESERV 17:15
PROVIDERS: ADMIT Internal Medicine; ATTEND Internal Medicine
DX: E11.43 Type 2 diabetes mellitus with diabetic autonomic (poly)neuropathy (principal); E87.1 Hypo-osmolality and hyponatremia; R65.10 Systemic inflammatory response syndrome (SIRS) of non-infectious origin without acute organ dysfunction; K31.84 Gastroparesis; K21.9 Gastro-esophageal reflux disease without esophagitis; I10 Essential (primary) hypertension; F39 Unspecified mood [affective] disorder; N20.0 Calculus of kidney; E78.5 Hyperlipidemia, unspecified; G40.909 Epilepsy, unspecified, not intractable, without status epilepticus; F43.21 Adjustment disorder with depressed mood; Z82.49 Family history of ischemic heart disease and other diseases of the circulatory system; Z88.8 Allergy status to other drugs, medicaments and biological substances
CPT/HCPCS: 36415; 74176; 76700; 78265; 80048; 80061; 80305; 82550; 82553; 82962; 83036; 84443; 84484; 85379; 93005; 93970; 96361; 96374; 96375; 96376; 99285; C1893; C9113; J1170; J1650; J1815; J2060; J2270; J2405; J2765; J3490; J7030